=== PATIENT | female | born 1990 | race Two or more races ===

== ENCOUNTER 2024-01-27 14:45 | Emergency (ER) | payer OTHER ==
[~2024-01-27] VITALS: Ht 162.6 cm; Wt 80.1 kg
[2024-01-27] MEDS: ACETAMINOPHEN 500 MG TAB PO ONE (18:00)
[2024-01-27] MEDS: diphenhydrAMINE 25MG CAP PO ONE (18:00)
[2024-01-27 18:13] VITALS: BP 121/70; TEMP 97.4; O2SAT 99
== END 2024-01-27 18:21 | disposition home or self-care (01) ==
LOC: M ED 14:45
DX: G43.909 Migraine, unspecified, not intractable, without status migrainosus (principal); Z88.2 Allergy status to sulfonamides

== ENCOUNTER → 2024-02-15 | Outpatient (CLI) | payer OTHER ==
[2024-02-15 14:03] LABS: HEMATOCRIT 36.1 % (36.0-47.0); HEMOGLOBIN 12.3 g/dl (12.0-15.5); MEAN CORPUSCULAR HEMOGLOBIN 29.6 pg (27.0-33.0); MEAN CORPUSCULAR HGB CONC 34.1 g/dl (32.0-36.5); PLATELET COUNT, AUTOMATED 254 10^3/uL (150-450); RED BLOOD COUNT 4.15 10^6/uL (4.00-5.40); WHITE BLOOD COUNT 8.8 10^3/uL (4.0-10.0)
[2024-02-15 15:17] LABS: GC DNA AMPLIFICATION NEGATIVE (NEGATIVE)
[2024-02-16 18:28] LABS: HIV 1&2 SCREEN NEGATIVE (NEGATIVE)
[2024-02-16 18:35] LABS: HEPATITIS C VIRUS ABY INDEX < 0.02 INDEX (<0.8)
== END ==
LOC: M PLALAB 10:47
PROVIDERS: ATTEND Advanced Practice Midwife
DX: Z34.81 Encounter for supervision of other normal pregnancy, first trimester (principal)

== ENCOUNTER → 2024-02-15 | Outpatient (REF) | payer OTHER | LOC: M PLALAB 10:19 | PROVIDERS: ATTEND Advanced Practice Midwife | DX: Z53.20 Procedure and treatment not carried out because of patient's decision for unspecified reasons (principal) ==

== ENCOUNTER → 2024-03-17 | Outpatient (CLI) | payer OTHER | LOC: M PLALAB 10:44 | PROVIDERS: ATTEND Obstetrics & Gynecology | DX: Z34.80 Encounter for supervision of other normal pregnancy, unspecified trimester (principal) ==

== ENCOUNTER → 2024-04-11 | Outpatient (CLI) | payer OTHER | LOC: M RAD 12:54 | PROVIDERS: ATTEND Obstetrics & Gynecology | DX: Z34.92 Encounter for supervision of normal pregnancy, unspecified, second trimester (principal) ==

== ENCOUNTER → 2024-05-13 | Outpatient (CLI) | payer OTHER ==
[2024-05-13 10:58] LABS: HEMATOCRIT 35.7 % (36.0-47.0); HEMOGLOBIN 11.6 g/dl (12.0-15.5); MEAN CORPUSCULAR HEMOGLOBIN 29.4 pg (27.0-33.0); MEAN CORPUSCULAR HGB CONC 32.5 g/dl (32.0-36.5); MEAN CORPUSCULAR VOLUME 90.4 fl (80.0-96.0); PLATELET COUNT, AUTOMATED 219 10^3/uL (150-450); RED BLOOD COUNT 3.95 10^6/uL (4.00-5.40); WHITE BLOOD COUNT 10.6 10^3/uL (4.0-10.0)
[2024-05-13 11:11] LABS: GLUCOSE CHALLENGE TEST 1 HOUR 73 MG/DL (LESS THAN 140)
[2024-05-13 11:53] LABS: HEPATITIS C VIRUS ABY INDEX 0.16 INDEX (<0.8)
[2024-05-13 13:35] LABS: GC DNA AMPLIFICATION NEGATIVE (NEGATIVE)
[2024-05-13 14:32] LABS: HIV 1&2 SCREEN NEGATIVE (NEGATIVE)
== END ==
LOC: M PLALAB 08:05
PROVIDERS: ATTEND Obstetrics & Gynecology
DX: O34.219 Maternal care for unspecified type scar from previous cesarean delivery (principal)

== ENCOUNTER → 2024-05-23 | Outpatient (CLI) | payer OTHER | LOC: M WHC 12:29 | PROVIDERS: ATTEND Obstetrics & Gynecology | DX: O34.219 Maternal care for unspecified type scar from previous cesarean delivery (principal); Z3A.25 25 weeks gestation of pregnancy ==

== ENCOUNTER 2024-07-27 19:42 | Outpatient (CLI) | payer OTHER ==
[~2024-07-27] VITALS: Ht 162.6 cm; Wt 84.9 kg
[2024-07-27 19:58] VITALS: BP 119/64
== END 2024-07-27 21:00 | disposition home or self-care (01) ==
LOC: M LDO 19:42
PROVIDERS: ATTEND Obstetrics & Gynecology
DX: O26.893 Other specified pregnancy related conditions, third trimester (principal); O34.219 Maternal care for unspecified type scar from previous cesarean delivery; W07.XXXA Fall from chair, initial encounter; Z3A.34 34 weeks gestation of pregnancy; Z88.2 Allergy status to sulfonamides; Y92.9 Unspecified place or not applicable; Y93.9 Activity, unspecified; Y99.9 Unspecified external cause status
CPT/HCPCS: 59025; 76815; G0463

== ENCOUNTER → 2024-08-07 | Outpatient (REF) | payer OTHER | LOC: M SFHCWAGY 14:21 | PROVIDERS: ATTEND Obstetrics & Gynecology | DX: Z36.89 Encounter for other specified antenatal screening (principal); Z3A.36 36 weeks gestation of pregnancy ==

== ENCOUNTER 2024-09-01 21:24 | Inpatient (IN) | payer OTHER ==
[2024-09-01] VITALS (10 sets, daily range): BP systolic 99–139; BP diastolic 51–69
[~2024-09-01] VITALS: Ht 162.6 cm; Wt 84.8 kg
[2024-09-01] MEDS ORDERED: HOME MED LIST COMPLETE! XX SCH (21:35)
[2024-09-01] MEDS ORDERED: TRANEXAMIC ACID INJection 1,000 MG in NS 100 ML IV PRN (21:45)
[2024-09-01] MEDS ORDERED: METHYLERGONOVINE MALEATE 0.2MG/ML 1ML VIAL IM PRN (21:45)
[2024-09-01] MEDS ORDERED: LR 1,000 ML IV SCH (21:45)
[2024-09-01] MEDS ORDERED: OXYTOCIN INJ 10UNITS/ML 1ML VIAL IM PRN (21:45)
[2024-09-01] MEDS ORDERED: CARBOPROST TROMETHAMINE 250 MCG/ML AMP IM PRN (21:45)
[2024-09-01] MEDS ORDERED: LIDOCAINE 1% MDV 20ML VIAL INFIL PRN (21:45)
[2024-09-01] MEDS: LACTATED RINGER'S 1000 ML IV STA (22:14)
[2024-09-01 22:24] LABS: HEMATOCRIT 34.2 % (36.0-47.0); HEMOGLOBIN 11.2 g/dl (12.0-15.5); MEAN CORPUSCULAR HEMOGLOBIN 27.5 pg (27.0-33.0); MEAN CORPUSCULAR HGB CONC 32.7 g/dl (32.0-36.5); PLATELET COUNT, AUTOMATED 210 10^3/uL (150-450); RED BLOOD COUNT 4.07 10^6/uL (4.00-5.40); WHITE BLOOD COUNT 9.1 10^3/uL (4.0-10.0)
[2024-09-01] MEDS ORDERED: diphenhydrAMINE 50MG/ML VIAL IV PRN (22:35)
[2024-09-01] MEDS ORDERED: LR 500 ML IV PRN (22:35)
[2024-09-01] MEDS ORDERED: ePHEDrine SULFATE 25 MG/5 ML(5MG/ML) SYRINGE IVP PRN (22:35)
[2024-09-01] MEDS ORDERED: NALOXONE INJ 0.4MG/1ML VIAL IV PRN (22:35)
[2024-09-01] MEDS ORDERED: EPIDURAL/PCA KEYS XX PRN (22:35)
[2024-09-01] MEDS ORDERED: ONDANSETRON 4MG 2ML VIAL IV PRN (22:35)
[2024-09-01] MEDS: OXYTOCIN DRIP 30 UNITS in IV 1 EA IV PRN (23:17)
[2024-09-01] MEDS: FENTANYL/ROPIVACAINE/NACL BAG 100 ML EPIDURAL SCH (23:18)
[2024-09-01 23:22] LABS: HIV 1&2 SCREEN NEGATIVE (NEGATIVE)
[2024-09-01 23:30] LABS: HEPATITIS C VIRUS ABY INDEX 0.02 INDEX (<0.8)
[2024-09-02 00:03] VITALS: BP 119/57
[2024-09-02 00:10] VITALS: BP 120/59
[2024-09-02 00:26] VITALS: BP 109/65
[2024-09-02] MEDS ORDERED: RHOGAM 300MCG (1500IU) INJ IM SCH (00:45)
[2024-09-02] MEDS ORDERED: MOM 30ML SUSPENSION UDC PO PRN (00:45)
[2024-09-02] MEDS ORDERED: ANUSOL HC CREAM 30GM TOP PRN (00:45)
[2024-09-02] MEDS ORDERED: ACETAMINOPHEN 325 MG TAB PO PRN (00:45)
[2024-09-02] MEDS ORDERED: ACETAMINOPHEN 500 MG TAB PO PRN (00:45)
[2024-09-02] MEDS ORDERED: DOCUSATE SODIUM 100MG CAPSULE PO PRN (00:45)
[2024-09-02 01:30] VITALS: BP 118/62; O2SAT 98
[2024-09-02 05:45] VITALS: BP 110/54; O2SAT 96
[2024-09-02] MEDS: DIBUCAINE 1% OINTMENT 30GM TOP PRN (08:11)
[2024-09-02] MEDS: PRENATAL VITAMINS CHEWABLE TABLET PO SCH (08:11)
[2024-09-02] MEDS: IBUPROFEN 800 MG TAB PO PRN (08:12)
[2024-09-02] MEDS: IBUPROFEN 600MG TAB PO PRN (17:33)
[2024-09-02 18:00] VITALS: BP 138/73; O2SAT 97
[2024-09-03 06:00] VITALS: BP 116/55; O2SAT 98
[2024-09-04] MEDS ORDERED: MEASLES,MUMPS,RUBELLA VACCINE INJ (MMR-II) SC.IMMUN ONE (09:00)
== END 2024-09-03 16:08 | disposition home or self-care (01) | DRG 807 ==
LOC: M LDO 21:24 → M LDI 21:39 → M OBS 09-02 01:21
PROVIDERS: ADMIT Advanced Practice Midwife; ATTEND Advanced Practice Midwife
PROC: 10E0XZZ Delivery of Products of Conception, External Approach (ICD-10-PCS; principal; 2024-09-01)
DX: O34.211 Maternal care for low transverse scar from previous cesarean delivery (principal); Z37.0 Single live birth; Z3A.39 39 weeks gestation of pregnancy; O62.3 Precipitate labor